=== PATIENT | female | born 1955 | race Caucasian/White ===

== ENCOUNTER → 2023-09-18 13:13 | Outpatient (REF) | payer OTHER, SELFPAY | LOC: WDC 13:13 | PROVIDERS: ATTENDING PHYSICIAN Family Medicine | DX: Z12.31 Encounter for screening mammogram for malignant neoplasm of breast (principal) | CPT/HCPCS: 77063; 77067 ==

== ENCOUNTER → 2023-11-07 09:15 | Outpatient (REF) | payer OTHER, SELFPAY | LOC: RAD 09:15 | PROVIDERS: ATTENDING PHYSICIAN Family Medicine | DX: M70.60 Trochanteric bursitis, unspecified hip (principal) | CPT/HCPCS: 73502 ==

== ENCOUNTER → 2024-11-30 13:09 | Outpatient (REF) | payer OTHER, SELFPAY | LOC: WDC 13:09 | PROVIDERS: ATTENDING PHYSICIAN Family Medicine | DX: Z12.31 Encounter for screening mammogram for malignant neoplasm of breast (principal) | CPT/HCPCS: 77063; 77067 ==